=== PATIENT | male | born 1985 | race Caucasian/White ===

== ENCOUNTER 2022-02-22 21:20 | Emergency (ER) | payer SELFPAY ==
[~2022-02-22] VITALS: Ht 165.1 cm; Wt 77.5 kg
[2022-02-22] MEDS ORDERED: HYDROCODONE/ACETAMINOPHEN 5/325MG TABLET PO ONE (22:45)
[2022-02-22] MEDS ORDERED: METHOCARBAMOL 500MG TABLET PO ONE (22:45)
[2022-02-22] MEDS ORDERED: LIDO1ADH5 TP (23:19)
[2022-02-22] MEDS ORDERED: NAPR-681 MT (23:19)
[2022-02-22] MEDS ORDERED: METH-773 MT (23:19)
[2022-02-22 23:20] VITALS: BP 144/106
[2022-02-23] MEDS ORDERED: KETOROLAC 60MG/2ML VIAL IM ONE
== END 2022-02-23 00:24 | disposition home or self-care (01) ==
LOC: ER 21:20
DX: S16.1XXA Strain of muscle, fascia and tendon at neck level, initial encounter (principal); M25.511 Pain in right shoulder; M54.59 Other low back pain; M79.621 Pain in right upper arm; M79.631 Pain in right forearm; R03.0 Elevated blood-pressure reading, without diagnosis of hypertension; V49.49XA Driver injured in collision with other motor vehicles in traffic accident, initial encounter; Y93.89 Activity, other specified; Y92.488 Other paved roadways as the place of occurrence of the external cause
CPT/HCPCS: 73030; 73060; 73090; 99284; J1885